=== PATIENT | female | born 1990 | race Caucasian/White ===

== ENCOUNTER → 2019-07-28 | Outpatient (CLI) | payer SELFPAY ==
[2019-07-28 15:44] LABS: Absolute Lymphocyte Count 2.41 X10^3/uL (0.83-4.51); Basophil# 0.03 X10^3/uL; Basophil% 0.3 % (0-1); Eosinophil# 0.12 X10^3/uL; Eosinophils% 1.1 % (0-5); Hematocrit 41.9 % (37-47); Hemoglobin 14.2 g/dL (12.0-15.0); Lymphocyte # 2.41 X10^3/ul (4.0); Lymphocyte % 21.4 % (19-41); Mean Corp Hgb Conc 33.9 g/dL (32-36); Mean Corpuscular Hgb 29.9 pg (27.0-32.0); Mean Corpuscular Volume 88.2 fL (81-99); Mean Platelet Vol. 10.7 fl (6.2-12.0); Monocyte# 0.68 X10^3/uL; NRBC Flagged by Analyzer 0 % (0-5); Neutrophil # 7.98 X10^3/uL (2.7-7.7); Neutrophil % 70.9 % (47-70); Platelet Count 258 K/mm3 (150-450); RBC Distribution Width CV 12.1 % (11.6-14.6); RBC Distribution Width SD 38.9 fl (35.1-43.9); Red Blood Count 4.75 M/mm3 (4.2-5.4); White Blood Count 11.3 K/mm3 (4.4-11.0)
[2019-07-28 16:09] LABS: Thyroid Stim Hormone (TSH) 1.46 uIU/mL (0.358-3.74)
[2019-07-28 16:41] LABS: Color, Urine Yellow (Yellow); Glucose, Dipstick Normal (Normal); Ketone-Dipstick Negative (Negative); Leukocyte Esterase-Dipstick Negative /ul (Negative); Nitrite-Dipstick Negative (Negative); Occult Blood-Urine Negative /ul (Negative); Protein-Dipstick Negative (Negative); Specific Gravity, Urine 1.005 (1.002-1.030); Urine Bilirubin Dipstick Negative (Negative); Urine Clarity Clear (Clear); Urine Urobilinogen Normal (Normal)
[2019-07-31 09:35] LABS: HIV - WCH Non-Reactive (Nonreactive); Hepatitis B Surface Antigen Non-Reactive (Nonreactive); Hepatitis C Antibody Non-Reactive (Nonreactive); Rubella IgG 114.2 IU/mL
[2019-08-03 02:30] LABS: Prenatal RPR NONREACTIVE (NONREACTIVE)
== END | disposition home or self-care (01) ==
LOC: LABSPEC 15:22
PROVIDERS: Referring Provider Obstetrics & Gynecology; Visit Provider Obstetrics & Gynecology
DX: Z34.81 Encounter for supervision of other normal pregnancy, first trimester (principal); Z12.4 Encounter for screening for malignant neoplasm of cervix; Z11.3 Encounter for screening for infections with a predominantly sexual mode of transmission
CPT/HCPCS: 81002; 84443; 85025; 86703; 86762; 86803; 87340

== ENCOUNTER → 2019-09-14 13:26 | Outpatient (CLI) | payer SELFPAY | PROVIDERS: Visit Provider Obstetrics & Gynecology | DX: Z34.82 Encounter for supervision of other normal pregnancy, second trimester (principal) | CPT/HCPCS: 87086; 87088 ==

== ENCOUNTER → 2019-12-27 11:30 | Outpatient (CLI) | payer SELFPAY ==
[2019-12-27 13:56] LABS: Hematocrit 36.9 % (37-47); Hemoglobin 11.7 g/dL (12.0-15.0); Mean Corp Hgb Conc 31.7 g/dL (32-36); Mean Corpuscular Hgb 28.7 pg (27.0-32.0); Mean Corpuscular Volume 90.7 fL (81-99); Mean Platelet Vol. 10.2 fl (6.2-12.0); Platelet Count 250 K/mm3 (150-450); RBC Distribution Width CV 12.7 % (11.6-14.6); RBC Distribution Width SD 42.1 fl (35.1-43.9); Red Blood Count 4.07 M/mm3 (4.2-5.4); White Blood Count 9.1 K/mm3 (4.4-11.0)
[2019-12-27 14:00] LABS: Glucose Challenge Gest 1H 50g 158 mg/dL (70-140)
== END ==
PROVIDERS: Visit Provider Obstetrics & Gynecology
DX: Z34.83 Encounter for supervision of other normal pregnancy, third trimester (principal)
CPT/HCPCS: 36415; 82950; 85027; 86850

== ENCOUNTER → 2020-03-08 10:57 | Outpatient (CLI) | payer SELFPAY ==
[2020-03-08 14:27] LABS: Group B Strep DNA By PCR Negative (Negative); Internal Control PASS; Probe Check PASS; Specimen Processing Control PASS
== END ==
PROVIDERS: Visit Provider Obstetrics & Gynecology
DX: Z36.85 Encounter for antenatal screening for Streptococcus B (principal)
CPT/HCPCS: 87081; 87653

== ENCOUNTER 2020-03-14 11:10 | Inpatient (IN) | payer SELFPAY ==
[2020-03-14] VITALS (44 sets, daily range): BP systolic 105–146; BP diastolic 61–92; PULSE 78–103; TEMP 36.2–37.3; O2SAT 90–100; BMI 24.5
[2020-03-14 12:20] LABS: Absolute Lymphocyte Count 2.43 X10^3/uL (0.83-4.51); Absolute Neutrophil Count 10.2 X10^3/uL (2.0-7.7); Basophil# 0.03 X10^3/uL; Basophil% 0.2 % (0-1); Eosinophil# 0.03 X10^3/uL; Eosinophils% 0.2 % (0-5); Hematocrit 39.4 % (37-47); Hemoglobin 13.5 g/dL (12.0-15.0); Lymphocyte # 2.43 X10^3/ul (4.0); Mean Corp Hgb Conc 34.3 g/dL (32-36); Mean Corpuscular Hgb 29.8 pg (27.0-32.0); Mean Platelet Vol. 11.9 fl (6.2-12.0); Monocyte# 0.69 X10^3/uL; Monocyte% 5.1 % (0-10); NRBC Flagged by Analyzer 0 % (0-5); Neutrophil # 10.22 X10^3/uL (2.7-7.7); Neutrophil % 75.6 % (47-70); Platelet Count 239 K/mm3 (150-450); RBC Distribution Width CV 13.6 % (11.6-14.6); RBC Distribution Width SD 42.3 fl (35.1-43.9); Red Blood Count 4.53 M/mm3 (4.2-5.4); White Blood Count 13.5 K/mm3 (4.4-11.0)
[2020-03-14] MEDS: Lactated Ringers 1,000 ML 50 ML IV (12:55)
[2020-03-14] MEDS: Lactated Ringers 500 ML 999 ML IV (12:55)
--- NOTE | 2020-03-14 13:03 | PCM.HP.OB ---
- Problem List (1) 40 weeks gestation of Status: Acute History Date of Admission: 03/14/20 Final MERLE: 03/08/20 Final MERLE Source: US <20 weeks Gestational age: 40 Weeks and 6 Days History of this : This is a 29 year-old, G [3], P [0020], at 40 6/7 weeks gestational age presents with painful contractions. Medical History: Medical History (Last Updated 03/14/20 @ 13:[address] Celina Sifuentes MD) Gestational diabetes O24.419 Allergies No Known Allergies Allergy (Verified 03/14/20 11:47) Smoking Status: Never smoker Alcohol: None Number of Fetus(es): 1 NST - FHR Rate Baby A Baseline: 120 Variability:: Moderate Accelerations:: 15 x 15 Decelerations:: None NST Reactive:: Yes FHR Category:: Category I Uterine Activity:: 3/10 min History Labs: [facility] [place] ANTEPARTUM RECORD - HISTORY AND PHYSICAL (03/14/2020) Name: YU SHELTON Physician: DONALDO 's Physician: UNDECIDED ...................................................................... : 1990 Age: 29 Address: [address] [place] [id number] Phone: ([phone] ([phone] Insurance Carrier: Emergency Contact: AMALIA WHELAN [phone] ...................................................................... Final MERLE: 03/08/20 By Ultrasound: 12 PARITY: (G-Total Pregnancies P-Fullterm,Premature,Induced AB,Spont AB, Ectopics, Multiple,Living) MERLE CONFIRMATION: By LMP: 03/20/19 Initial Exam: 03/16/20 By First Ultrasound Exam: 03/08/20 Final MERLE: 03/08/20 BLOOD TYPE: AFP: 1 HR PG: GBS: Original Ordering Provider: Celina CHAVARRIA Culture Group B Beta Streptococcus is not isolated. Rublla titer (>10 immune)-- Hepatatis B danny AG-- CULTURES:-- OB PROBLEM LIST: Some anxiety, no treatment. EPDS on 07/28/2019 = 6. 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 Office classes encouraged. 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 Illicit Drug Use - None Sexual Activity - Residence - lives with Place of - [place], [place] Hours Worked - 24 Spouse-Sig Other Name - Salty Shelton Spouse-Sig Other Occupation - [employer] Spouse-Sig Other Phone No - [phone] PRIOR DELIVERY HISTORY DEL DATE GEST LAB WT LB WT OZ TYPE ANES LABOR TX 01 Jun 08 4 0 0 0 Sab None 15 Sep 19 4 0 0 0 Sab None No ANTEPARTUM FLOW CHART VISIT GE RTC FU F F MD U U DATE WK MD WKS HT PN HR M SS BP ED WT MD GL D EF ST __ ____ ___ __ __ ___ __ __ __ ___ __ __ __ ___ __ 23 Feb JMW 1 38 V + + 138/84 0 130 ne ne S Feb SHM 1 37 V + + 120/88 0 128 - - 1 50 -3 Jan SHM 1 33 V + + 130/82 0 127 tr - Jan SHM 2 32 V + + 120/70 0 126 - - 21 Jan 18 SHM 2 29 V + + 112/62 0 121 tr ne 07 Jan 16 SHM 2 26 ? + + 122/60 0 119 - 3+ 09 Dec 13 SHM 4 23 + + 112/58 0 116 - - 05 Nov 07 SHM 4 21 + O 110/64 0 111 tr - 01 Oct 02 SHM 5 + O 106/80 0 107 ne ne Sep 01 SHM 4 + O 100/60 0 106 ne ne Aug 29 SHM 5 on O 98/62 0 106 - - ANTEPARTUM NOTE(S): Mar 13 2020: ck BPP and start NSTs; induce next week Mar 08 2020: GBS and LARC Feb 12 2020: copyof blood sugars for review Feb 02 2020: feeling well. AM Jan 10 2020: Dec 26 2020: Nov 28 2020: see note Oct 25 2019: comp u/s today with anterior plancenta noted Sep 19 2020: Sep 13 2020: see note Aug 25 2019: COMPREHENSIVE ANTEPARTUM NOTE(S): Mar 14 2020: Call Msg from Yu's reporting ctx's since 4 AM, now q 5 min lasting a min and have been this way for the past hour. Having some spotting, denies leaking fluid and good FM. They are on their way to the hosp. Dr Rupert Sifuentes notified. Mar 13 2020: Yu is here for PNV. here. States that she is slightly uncomfortable. Having some cramping in lower abd. States BH maybe once or twice a day. No edema. Good FM. Having mucousy vag discharge. No other complaints or concerns. LSS Mar 13 2020: Yu and here for visit and wanting cervix ck and plan for delivery as post dates. initially declines NST at on Wednesday. Advised this is necessary and would be against medical advice. Yu agreeable to NST. They refuse to schedule induction this week for early next week. will not hold a spot for them unless they sign paperwork and they are advised and plan to see SHM on Wednesday to discuss. BPP completed today after NST which is reassuring and BPP is 8/8. LMT Mar 11 2020: H taken to OB. tkg Mar 11 2020: Entry for 03/08/20: Due date changed due to computer error, 40 w today. Declines membrane stripping. Glucose remains well controlled. Discussed elective IOL vs. expectant management. Pt declines IOL. Will plan for IOL at 41+ wga if remains undelivered. Mar 08 2020: Yu is here for a PNV. Good FM. No edema preset. No concerns expressed at this time. Will do GBS and LARC today. GBS consent signed. LARC reviewed and declined. Would like to do a cervix check today. Believes she lost mucous plug Wednesday and has had inconsistent cramping since. MK Feb 13 2020: Glucose log reviewed, elevated postprandial and single elevated fasting last week. 86% at target. Pt indicated she previously had been more sedentary after those meals. Will move more postprandially. Discussed development late term. FM and labor precautions. Feb 02 2020: Glucose levels at target 100% after dietary changes. Pt declined meet with dietitian, will continue self managment, doing well. Fasting and 2 postprandial FS daily ok. Reviewed plan for expectant management with regards to labor if remains well controlled. Discussed glucose surveillance in labor and indications. GBS discussed for next visit. Jan 10 2020: Yu is here for PNV. Good FM. No edema noted. Urine dipped tr and neg. States that she is feeling good. No concerns for this visit. LSS Jan 10 2020: Reviewed elevated 1h GTT, recommend 3h GTT. Pt inquires about alternatives, FS glucose testing as alternative reviewed. Rx glucometer, test strips and lancets given. Reviewed how to take fasting and 1h postprandial blood sugars. Discussed Peds/Family Doc selection for . Not planning on cord blood banking. Dec 27 2019: 1 Hr Glucose, CBC, Antibody Screen drawn this morning. Rhogam given after blood drawn. 3+ glucose in urine. States she had whole grain toast w/avocado and an egg. Water to drink. Good FM. Voicing no concerns. kbm Dec 27 2019: PTL, ROM, FM precautions. Discussed PPBC, family spacing, considering NFP. Information given. Nov 29 2019: Yu is here for visit. Several concerns today regarding Glucola and Rhogam. She is given dye and BVO free glucola. Rhogam Thimerosal free. Encouraged her to review the CDC education on this. LMT Nov 29 2019: Yu is here with her mother today. Has questions about Rhogam indications. Discussed indications, source. She will try to verify 's blood type in interim. Pt understands testing for blood type will determine if additional dose recommended. PTL, FM precautions discussed. Recommend Flu shot. Pt considering against this, recommend zinc 40mg daily and Vitamin D3 2000 IU daily if declines. Labor analgesia reviewed - desires unmedicated labor and is considering options, open to epidural as indicated. Oct 25 2019: Anatomy scan - EFW 73rd%, ANTERIOR placenta, normal anatomy. Discussed FM further. Pt inquired about placental encapsulation, reviewed limited scientific evidence supporting the practice. Advised to avoid if any signs of infection at labor or delivery. Discussed epidural and spinal indications. Gender reveal planned for tonight. Sep 20 2019: UCx neg reviewed. Discussed movement, round ligament pain. Pt plans childbirth and class. Denies anxiety, depressive sx. Sep 14 2019: Yu is here for evaluation of leaking fluid yesterday. She felt like her panties were damp several times yesterday. [place] like she had to urinate more frequently. Today sx are pretty much resolved. Urine dip shows ? sm leuks, ph of 6, sp gr 1.005. Urine sent for culture. LMT Sep 14 2019: FHR 160 bpm on US, grossly normal fluid. SSE - neg pool, nitrazine. Wet prep - neg clue/trich/yeast. Pt reassured. Dx. Leukorrhea Aug 31 2019: TELEHEALTH NOB VISIT. Yu is a 29 year old A2 (early SAB's), with an MERLE of 03/16/2020, current GA is 11 w 5 d. She reports that she is feeling well with no N/V. Yu resides with her , Salty, and she states that they are both very happy and nervous about the given her SAB history. Past history updated. Office practice patterns reviewed, and her labs were collected at her prior visit. Emergencies/danger signs to reports, contacting the office during/after hours, reporting a suspected UTI, round ligament pain, and common OTC medications approved/not approved for use during reviewed. She states that she has a history of UTI's, and that she will definitely call the office. Delivery at [facility] is planned, with an epidural, and she will breastfeed. Office childbirth and classes discussed and encouraged, Yu takes an OTC vitamin that contains DHA and states that she tolerates this well. She is a life long non-smoker, and denies use of drugs or ETOH. Genetic Screening form completed on 07/28/2019, notable for her being born without one of his femurs. Initially Yu had been undecided about AFP and CF testing, she states that she and her have decided to decline both. She states that she has a history of some anxiety, but has not felt that she needed to seek treatment for same. EPDS on 07/28/2019 = 6. Water/dietary/caloric needs for reviewed, including recommended weight gain, limiting empty calories, limiting to caffeine to one cup a day, and food safety for reviewed. Encouraged to take walks 5 x/week for 30 mins each time. Lifting restrictions for reviewed. Yu states that she understands all information provided during 45 minute telephone NOB visit, and that she has no questions following same. AW Aug 27 2019: Entry for 08/25/19: Reviewed with Yu and [id number] related precautions. Their concerns about risk for loss discussed, reviewed dropping risk as advances particularly after 12 weeks. Discussed aneuploidy screening options including cfDNA vs. Quad screen. Reviewed benefits, limitations including associated risk for false positives and negatives. Also discussed amniocentesis, [facility]. Plan for Quad screen, msAFP at next appointment. Aug 25 2019: Yu is here w/her , Salty, for PNV, US. All going well. She is feeling well. No nausea or vomiting. Both are anxious d/t 2 previous SAB's. Concerned w/Hx UTI's -- apprx 3/ year and has Rx for Macrobid from her PCP to take. Advised to call with any Sx cramping or UTI Sx. Reviewed bedroom / bathroom hygiene and to always void after IC/ good handwashing. Reviewed importance of hydration. They would like to discuss wearing masks @ work. Both have been following COVID precautions at [facility] respective jobs. [facility] Jul 28 2019: Yu is here for missed menses appt. She relates to me no real menses since early SAB in May. Reports early SAB in May and then the one in May. She is concerned about another SAB as she does not really feel . Only sx is feels a little more hungry. She is taking PNV. Was taking hair vitamin and iodine supplement but stopped these. She is advised that she probably does not need these. She could add Vit D and Probiotic if desires. Most seem deficient of Vit D in [place] and Probiotic may help with GI system. Reviewed normal sx like constipation, heartburn, increased gas. Educational materials are provided and medications for minor discomforts are reviewed. Encouraged healthy diet, increased po fluids, and 30 minutes of exercise 5x/wk. Pap and cultures are due today. Further discussion regarding dating of this and prior hx of the early SAB's with Dr OVALLES. LMT REVIEW OF SYSTEMS: GENERAL - Denies fever, or chills SKIN - Denies rash, new skin lesions, or change in moles EYES - Denies blurred vision, or change in visual acuity EARS - Denies ear pain, or difficulty hearing NOSE - Denies nasal congestion, discharge, or bleeding MOUTH - Denies sore throat, or difficulty swallowing NECK - Denies pain or swelling RESPIRATORY - Denies shortness of breath, cough, wheezing CARDIOVASCULAR - Denies palpitations, chest pain, orthopnea, PND, peripheral edema, syncope or claudication GASTROINTESTINAL - Denies nausea, vomiting, diarrhea, constipation, Denies abdominal pain, melena and or bright red blood GENITOURINARY - Denies dysuria, frequency of urination, urgency, or hesitancy MUSCULOSKELETAL - Denies joint or muscle pain, or back pain NEUROLOGICAL - Denies localized numbness, weakness, or tingling PSYCHIATRIC - Denies depression, anxiety, substance abuse or suicide attempts ENDOCRINE - Denies heat or cold intolerance, weight loss or gain, increasing thirst HEMATO-IMMUNOLOGIC - Denies easy bruising, bleeding, oral ulcerations or recurrent infections GENETICS SCREENING: Age 35+ years: No Thalassemia: No Neural Tube Defect: No Down Syndrome: No ROBERTO-SACHS: No Sickle Cell Disease: No Hemophilia: No Musc. Dystrophy: No Cystic Fibrosis: No-declines screening [place] Chorea: No Mental Retardation: No Fragile X: No Other genetic: No Other defects: No SABs/still births: No Drugs since LMP: No Comments: born without femur INFECTION HISTORY: High risk AIDS: No High risk Hepatitis: No Exposed to TB: No Exposed to Herpes: No Rash/viral illness since LMP: No History of STD: No MENSTRUAL HISTORY: *Menses Amount/Duration: 5 daysMenses Regularity: RegularFrequency: monthlyMenarche (Age Onset): 14* PAST SUMMARY: PARITY: 1. Total Pregnancies............ 3 2. Full Term Pregnancies........ 0 3. Premature.................... 0 4. Abortions - Induced.......... 0 5. Abortions - Spontaneous...... 2 6. Ectopics..................... 0 7. Multiple Births.............. 0 8. Living Children.............. 0 PAST #1: Date of :.................. 12/04/18 Gestation Weeks:................ 4 Length of labor(hours):......... 0 Sex:............................ Weight-lbs:............... 0 Weight-oz:................ 0 Type of Delivery:............... Sab Type of Anesthesia:............. None Place of Delivery:.............. none Treatment of Labor?:.... No Comment: APPROX DATE PAST #2: Date of :.................. 05/21/19 Gestation Weeks:................ 4 Length of labor(hours):......... 0 Sex:............................ Weight-lbs:............... 0 Weight-oz:................ 0 Type of Delivery:............... Sab Type of Anesthesia:............. None Place of Delivery:.............. none Treatment of Labor?:.... Comment: DATE APPROX Expected Delivery Method: Spontaneous Vaginal Number of Visits: 11 Physical Exam Vitals: Vital Signs Temp Pulse BP Pulse Ox 99.2 F H 82 118/75 98 03/14/20 12:21 03/14/20 12:21 03/14/20 12:21 03/14/20 12:21 General: Alert, Oriented x3, Cooperative, No apparent distress HEENT: Atraumatic, Normocephalic Cardiovascular: Regular rate, Regular Rhythm, Normal S1, Normal S2 Lungs: Normal air movement Abdomen: Soft, Non Tender, Non-Distended Neurological: Neuro grossly intact Estimated gestational size: Appropriate for gestational size Presentation: Cephalic Cervix Dilation (cm): 3.5 - by RN exam Christina Castillo Assessment/Plan All Active Problems 40 weeks gestation of (Acute) This is a 29 year-old, G [3], P [0020], at 40 6/7 weeks gestational age in labor, Cat I FHR
--- NOTE | 2020-03-14 13:23 | PCM.PN.BLA ---
Progress Note LABOR PROGRESS NOTE Yu reports persistent back pain. AVSS GEN - NAD, breathing through contractions FHR 120, moderate variability, + accelerations, no decelerations TOCO 3/10 min SVE 6/80/0 station, blood show present A/P: 29yo @ 40 6/7 wga, Cat I FHR in active labor -Epidural per patient request -Blood sugars well controlled STROKE Vital Signs/Narrative: Vital Signs Temp Pulse BP Pulse Ox 03/14/20 12:21 99.2 F H 82 118/75 98 03/14/20 11:13 97.9 F 03/14/20 11:07 93 139/83 H
[2020-03-14 13:36] LABS: Bedside Glucose 98 mg/dL (70-110)
[2020-03-14] MEDS: fentaNYL-bupivacaine (epidural) 100 ML BAG EPIDURAL (13:45)
[2020-03-14 14:21] LABS: Bedside Glucose 104 mg/dL (70-110)
[2020-03-14 16:45] LABS: Bedside Glucose 106 mg/dL (70-110)
[2020-03-14 16:45] LABS: Bedside Glucose 173 mg/dL (70-110)
[2020-03-14] MEDS: 0.9% Saline Lock 10 ML Syringe IV (17:41)
[2020-03-14] MEDS: Ondansetron 4 MG/2 ML Vial IV (17:42)
[2020-03-14 17:46] LABS: Bedside Glucose 91 mg/dL (70-110)
[2020-03-14] MEDS: Lactated Ringers 1,000 ML 200 ML IV (19:34)
[2020-03-14] MEDS: Oxytocin 30 units/NS 500 ml 30 UNITS/500 ML IV.SOLN 334 UNITS IV (20:18)
[2020-03-14 21:40] LABS: Bedside Glucose 108 mg/dL (70-110)
[2020-03-14 21:40] LABS: Bedside Glucose 100 mg/dL (70-110)
[2020-03-14] MEDS: Ibuprofen 600 MG Tablet PO (21:59)
--- NOTE | 2020-03-14 23:55 | PCM.OPRPT ---
Problem List (1) 40 weeks gestation of Status: Acute Vaginal Delivery Maternal Presentation: Active Labor [id number] Amniotic Membrane Rupture Type: Spontaneous Rupture of Membrane time: 1322 on 03/14/20 Amniotic Fluid Description: Clear Final MERLE: 03/08/20 Final MERLE Source: US <20 weeks Gestational age: 40 Weeks and 6 Days Date of Procedure: 03/14/20 Pre-Operative Diagnosis: 40 6/7wga, GDMA1 Post-Operative Diagnosis: 40 6/7wga, GDMA1 Surgery/ Procedure Performed: Spontaneous Vaginal Delivery Anesthesiologist: Luis Christopher Type of Anesthesia: Epidural Description of Procedure: Patient was FD, pushed to deliver a vigorous male . placed on maternal abdomen and further attended by nursery personnel. Cord doubly clamped and cut. Placenta delivered spontaneously and appeared intact on inspection. First degree perineal laceration repaired with 3-0 Vicryl Rapide. Presentation: Vertex Placental Delivery Description: Spontaneous Cord Vessel Description: 3 Vessels Nuchal Cord Compression: Without compression Cord Entanglement: None Drain: Duncan to straight drain Infant A gender: Male (1 minute): 9 (5 minute): 9 Episiotomy Description: None Laceration: Perineal Extension/lac, 1st degree Medications given after delivery: IV Pitocin Complications: None
--- NOTE | 2020-03-15 01:30 | NURSING ---
Report given to Berta GUILLERMO, taking over pt and care at this time.
[2020-03-15] MEDS: Acetaminophen 500 MG Tablet PO ×3 (02:11→18:19)
[2020-03-15 02:24] VITALS: BP 110/67; PULSE 74; RESP 16; TEMP 37.3
[2020-03-15 05:11] VITALS: BP 111/76; PULSE 74; RESP 16; TEMP 37.1
[2020-03-15 05:21] LABS: Bedside Glucose 86 mg/dL (70-110)
--- NOTE | 2020-03-15 07:07 | PCM.PN.OB ---
Patient Problems: Active and Suspected Problems (Last Updated 03/14/20 @ 13:[address] Celina Sifuentes MD) 40 weeks gestation of (Acute) Subjective: No issues overnight. She is sore, but pain alleviated with medication. Denies heavy lochia. Voiding and ambulating without difficulty. Nursing is going well, but she notes pain with latching. - Physical Exam Vitals/I&O's: Vital Signs Temp Pulse Resp BP Pulse Ox 98.7 F 74 16 111/76 92 03/15/20 05:11 03/15/20 05:11 03/15/20 05:11 03/15/20 05:11 03/14/20 22:45 Oxygen Delivery Method Room Air Weight: 58.8 kg Body Mass Index (BMI) 24.5 Intake and Output for Last 24 Hours 03/13/20 03/14/20 03/15/20 23:59 23:59 23:59 Intake Total 2530.00 / 2530.00 Output Total 2250 / 2250 1400 / 1400 Balance 280.00 / 280.00 -1400 / -1400 General: Alert, Oriented x3, Cooperative, No apparent distress HEENT: Atraumatic, Normocephalic Lungs: Clear to auscultation, Normal air movement Cardiovascular: Regular rate, Regular Rhythm, Normal S1, Normal S2 Abdomen: Soft, Non Tender, Non-Distended, - - Fundus firm and nontender, lochia scant Extremities: No edema, No Calf Tenderness Neurological: Neuro grossly intact Psych/Mental Status: Normal Affect, Appropriate, Alert and oriented to time, place, person, mood and affect Laboratory Results 03/14/20 11:55: WBC 13.5 H, RBC 4.53, Hgb 13.5, Hct 39.4, MCV 87.0, MCH 29.8, MCHC 34.3, RDW Std Deviation 42.3, RDW Coeff of Jj 13.6, Plt Count 239, MPV 11.9, Immature Gran % (Auto) 0.900, Neut % (Auto) 75.6 H, Lymph % (Auto) 18.0 L, Butler % (Auto) 5.1, Eos % (Auto) 0.2, Baso % (Auto) 0.2, Absolute Neuts (auto) 10.2 H, Absolute Lymphs (auto) 2.43, Nucleated RBC % 0 03/14/20 11:55: Blood Type A NEGATIVE, Antibody Screen TNP 03/14/20 11:55: Antibody Screen NEGATIVE 03/14/20 13:14: POC Glucose 98 03/14/20 14:13: POC Glucose 104 03/14/20 15:23: POC Glucose 173 H 03/14/20 16:25: POC Glucose 106 03/14/20 17:42: POC Glucose 91 03/14/20 19:50: POC Glucose 100 03/14/20 21:10: POC Glucose 108 03/15/20 04:58: POC Glucose 86 Current Medications Acetaminophen (Acetaminophen 500 Mg Tablet) 500 - 1,000 mg PO Q6H PRN PRN PRN Reason: Pain Score 1-3 Last Admin: 03/15/20 02:11 Dose: 1,000 mg Documented by: Bisacodyl (Bisacodyl 10 Mg Suppository) 10 mg RECTAL UD PRN PRN Reason: If no BM Dextrose (Dextrose 50%-Water 25 Gm/50 Ml Disp.Syrin) 0 gm IV X1 PRN; Protocol PRN Reason: Hypoglycemia Dibucaine (Dibucaine 30 Gm Tube) 1 applic TOPICAL TID PRN PRN; Protocol PRN Reason: Discomfort Glucagon (Glucagon 1 Mg/Ml Syringe) 1 mg IM .X1 PRN PRN Reason: Hypoglycemia Hydrocortisone (Hydrocortisone 2.5% Crm) 1 applic TOPICAL TID PRN PRN; Protocol PRN Reason: Discomfort Ibuprofen (Ibuprofen 600 Mg Tablet) 600 mg PO Q6H PRN PRN PRN Reason: Pain Score 1-3 Last Admin: 03/14/20 21:59 Dose: 600 mg Documented by: Methylergonovine Maleate (Methylergonovine 0.2 Mg/Ml Ampul) 0.2 mg IM X1 PRN PRN Reason: Excess bleeding/uterine atony Ondansetron HCl (Ondansetron 4 Mg/2 Ml Vial) 4 mg IV Q4H PRN PRN PRN Reason: NAUSEA Last Admin: 03/14/20 17:42 Dose: 4 mg Documented by: Senna/Docusate Sodium (Senna/Docusate Sodium 1 Tablet) 1 - 2 tablet PO DAILY PRN PRN PRN Reason: Constipation Simethicone (Simethicone 80 Mg Tablet) 80 mg PO PCHS PRN PRN Reason: Indigestion/Stomach pain Sodium Chloride (0.9% Saline Lock 10 Ml Syringe) 5 - 15 ml IV UD PRN PRN Reason: SALINE FLUSH Medical Necessity - Tobacco Use Smoking Status: Never smoker Assessment/Plan All Active Problems (Last Updated 03/14/20 @ 13:[address] Celina Sifuentes MD) 40 weeks gestation of (Acute) This is a 29 year-old, G [3], P [1021], PPD#1 s/p doing well. -A neg, A neg - No Rhogam indicated -, support -Routine care
[2020-03-15] MEDS: Ibuprofen 600 MG Tablet PO ×3 (08:18→21:49)
[2020-03-15 08:20] VITALS: BP 115/74; PULSE 72; RESP 16; TEMP 37.2; O2SAT 95
[2020-03-15 11:57] VITALS: BP 120/78; PULSE 83; RESP 16; TEMP 36.8; O2SAT 96
[2020-03-15 14:00] VITALS: BP 112/72; PULSE 83; RESP 16; TEMP 36.9; O2SAT 96
[2020-03-15 20:49] VITALS: BP 109/69; PULSE 79; RESP 16; TEMP 36.7
[2020-03-15] MEDS: Senna/Docusate Sodium 1 Tablet PO (21:49)
[2020-03-16 01:52] VITALS: BP 109/69; PULSE 70; RESP 14; TEMP 36.7
[2020-03-16] MEDS: Ibuprofen 600 MG Tablet PO (08:44)
[2020-03-16] MEDS: Senna/Docusate Sodium 1 Tablet PO (08:45)
[2020-03-16 08:49] VITALS: BP 109/81; PULSE 89; RESP 16; TEMP 37.1
--- NOTE | 2020-03-16 09:02 | DCINST_ITS ---
Discharge Diet: No Restrictions Discharge Activity: Return to Normal Activity, May Shower, May Take a Tub Bath May resume sexual activity in: 6 weeks Lifting Restrictions: 20 lb Call your doctor if you observe: Fever of 101 or Higher, Inability to urinate, Inability to have a bowel movement, Shortness of breath, Chest pain, Calf discomfort, Uncontrolled pain Additional Instructions: If you experience any of the following, contact your healthcare provider. * Bleeding that soaks a pad every hour for 2 hours * Fever 100.4 or higher * Unrelieved incision or abdominal pain * Swelling, redness, discharge or bleeding from your incision or episiotomy site * Your incision begins to separate * Problems urinating (including inability to urinate or burning while urinating). * Visual changes * Severe headache * Flu-like symptoms * Pain or redness in one of both of your breasts * Pain, warmth, tenderness or swelling in your legs, especially the calf area * Frequent nausea and vomiting * Symptoms of depression or anxiety If you experience any of the following, call 911 or go to the nearest Emergency Room. * Chest pain * Problems breathing * Seizure activity * Partial or complete paralysis of a body part, slurred speech, weakness or drooping of the face, or a sudden inability to walk or hold your balance Allergies/Adverse Reactions: Allergies No Known Allergies Allergy (Verified 03/14/20 11:47) Please Follow Up With: Celina Oro MD When: 6 weeks Test Results: Test results from this visit will be discussed in further detail at your follow- up appointment, if applicable.
--- NOTE | 2020-03-16 09:02 | PCM.DCVAG ---
Discharge Diet: No Restrictions Discharge Activity: Return to Normal Activity, May Shower, May Take a Tub Bath May resume sexual activity in: 6 weeks Lifting Restrictions: 20 lb Call your doctor if you observe: Fever of 101 or Higher, Inability to urinate, Inability to have a bowel movement, Shortness of breath, Chest pain, Calf discomfort, Uncontrolled pain Additional Instructions: If you experience any of the following, contact your healthcare provider. Bleeding that soaks a pad every hour for 2 hours Fever 100.4 or higher Unrelieved incision or abdominal pain Swelling, redness, discharge or bleeding from your incision or episiotomy site Your incision begins to separate Problems urinating (including inability to urinate or burning while urinating). Visual changes Severe headache Flu-like symptoms Pain or redness in one of both of your breasts Pain, warmth, tenderness or swelling in your legs, especially the calf area Frequent nausea and vomiting Symptoms of depression or anxiety If you experience any of the following, call 911 or go to the nearest Emergency Room. Chest pain Problems breathing Seizure activity Partial or complete paralysis of a body part, slurred speech, weakness or drooping of the face, or a sudden inability to walk or hold your balance Allergies/Adverse Reactions: Allergies No Known Allergies Allergy (Verified 03/14/20 11:47) Please Follow Up With: Celina Oro MD When: 6 weeks Test Results: Test results from this visit will be discussed in further detail at your follow-up appointment, if applicable.
--- NOTE | 2020-03-16 09:23 | PCM.PN.OB ---
Patient Problems: Active and Suspected Problems (Last Updated 03/14/20 @ 13:[address] Celina Sifuentes MD) 40 weeks gestation of (Acute) Subjective: No issues overnight. She reports soreness of perineum. Denies heavy lochia. Continues nursing. Objective: AVSS - Physical Exam Vitals/I&O's: Vital Signs Temp Pulse Resp BP Pulse Ox 98.7 F 89 16 109/81 H 96 03/16/20 08:49 03/16/20 08:49 03/16/20 08:49 03/16/20 08:49 03/15/20 14:00 Oxygen Delivery Method Room Air Weight: 58.8 kg Body Mass Index (BMI) 24.5 Intake and Output for Last 24 Hours 03/14/20 03/15/20 03/16/20 23:59 23:59 23:59 Intake Total 2530.00 / 2530.00 Output Total 2250 / 2250 1400 / 1400 Balance 280.00 / 280.00 -1400 / -1400 General: Alert, Oriented x3, Cooperative, No apparent distress HEENT: Atraumatic, Normocephalic Lungs: Clear to auscultation, Normal air movement Cardiovascular: Regular rate, Regular Rhythm, Normal S1, Normal S2 Abdomen: Soft, Non Tender, Non-Distended, - - Fundus firm and nontender Extremities: No edema, No Calf Tenderness Neurological: Neuro grossly intact Psych/Mental Status: Normal Affect, Appropriate, Alert and oriented to time, place, person, mood and affect Current Medications Acetaminophen (Acetaminophen 500 Mg Tablet) 500 - 1,000 mg PO Q6H PRN PRN PRN Reason: Pain Score 1-3 Last Admin: 03/15/20 18:19 Dose: 1,000 mg Documented by: Bisacodyl (Bisacodyl 10 Mg Suppository) 10 mg RECTAL UD PRN PRN Reason: If no BM Dextrose (Dextrose 50%-Water 25 Gm/50 Ml Disp.Syrin) 0 gm IV X1 PRN; Protocol PRN Reason: Hypoglycemia Dibucaine (Dibucaine 30 Gm Tube) 1 applic TOPICAL TID PRN PRN; Protocol PRN Reason: Discomfort Glucagon (Glucagon 1 Mg/Ml Syringe) 1 mg IM .X1 PRN PRN Reason: Hypoglycemia Hydrocortisone (Hydrocortisone 2.5% Crm) 1 applic TOPICAL TID PRN PRN; Protocol PRN Reason: Discomfort Ibuprofen (Ibuprofen 600 Mg Tablet) 600 mg PO Q6H PRN PRN PRN Reason: Pain Score 1-3 Last Admin: 03/16/20 08:44 Dose: 600 mg Documented by: Methylergonovine Maleate (Methylergonovine 0.2 Mg/Ml Ampul) 0.2 mg IM X1 PRN PRN Reason: Excess bleeding/uterine atony Ondansetron HCl (Ondansetron 4 Mg/2 Ml Vial) 4 mg IV Q4H PRN PRN PRN Reason: NAUSEA Last Admin: 03/14/20 17:42 Dose: 4 mg Documented by: Senna/Docusate Sodium (Senna/Docusate Sodium 1 Tablet) 1 - 2 tablet PO DAILY PRN PRN PRN Reason: Constipation Last Admin: 03/16/20 08:45 Dose: 1 tablet Documented by: Simethicone (Simethicone 80 Mg Tablet) 80 mg PO PCHS PRN PRN Reason: Indigestion/Stomach pain Sodium Chloride (0.9% Saline Lock 10 Ml Syringe) 5 - 15 ml IV UD PRN PRN Reason: SALINE FLUSH Medical Necessity - Tobacco Use Smoking Status: Never smoker Assessment/Plan All Active Problems (Last Updated 03/14/20 @ 13:[address] Celina Sifuentes MD) 40 weeks gestation of (Acute) This is a 29 year-old, G [3], P [1021], PPD#2 s/p doing well. -A neg, infant A neg - No Rhogam indicated -, support -Routine care -d/c home today
--- NOTE | 2020-03-16 09:24 | DCINST_ITS ---
Discharge Diet: No Restrictions Discharge Activity: Return to Normal Activity, May Shower, May Take a Tub Bath May resume sexual activity in: 6 weeks Call your doctor if you observe: Fever of 101 or Higher, Inability to urinate, Inability to have a bowel movement, Shortness of breath, Chest pain, Calf discomfort, Uncontrolled pain Additional Instructions: If you experience any of the following, contact your healthcare provider. * Bleeding that soaks a pad every hour for 2 hours * Fever 100.4 or higher * Unrelieved incision or abdominal pain * Swelling, redness, discharge or bleeding from your incision or episiotomy site * Your incision begins to separate * Problems urinating (including inability to urinate or burning while urinating). * Visual changes * Severe headache * Flu-like symptoms * Pain or redness in one of both of your breasts * Pain, warmth, tenderness or swelling in your legs, especially the calf area * Frequent nausea and vomiting * Symptoms of depression or anxiety If you experience any of the following, call 911 or go to the nearest Emergency Room. * Chest pain * Problems breathing * Seizure activity * Partial or complete paralysis of a body part, slurred speech, weakness or drooping of the face, or a sudden inability to walk or hold your balance Allergies/Adverse Reactions: Allergies No Known Allergies Allergy (Verified 03/14/20 11:47) Medications to take at Discharge Ibuprofen [Motrin] 600 mg PO Q8H PRN PRN #30 tab 03/16/20 The following prescriptions were given: Ibuprofen [Motrin] 600 mg PO Q8H PRN PRN #30 tab PRN Reason: Pain Score 1-10 Transmission Status: Pending to [facility] Please Follow Up With: Celina Oro MD When: 6 weeks Test Results: Test results from this visit will be discussed in further detail at your follow- up appointment, if applicable.
--- NOTE | 2020-03-16 09:24 | PCM.DCVAG ---
Discharge Diet: No Restrictions Discharge Activity: Return to Normal Activity, May Shower, May Take a Tub Bath May resume sexual activity in: 6 weeks Call your doctor if you observe: Fever of 101 or Higher, Inability to urinate, Inability to have a bowel movement, Shortness of breath, Chest pain, Calf discomfort, Uncontrolled pain Additional Instructions: If you experience any of the following, contact your healthcare provider. Bleeding that soaks a pad every hour for 2 hours Fever 100.4 or higher Unrelieved incision or abdominal pain Swelling, redness, discharge or bleeding from your incision or episiotomy site Your incision begins to separate Problems urinating (including inability to urinate or burning while urinating). Visual changes Severe headache Flu-like symptoms Pain or redness in one of both of your breasts Pain, warmth, tenderness or swelling in your legs, especially the calf area Frequent nausea and vomiting Symptoms of depression or anxiety If you experience any of the following, call 911 or go to the nearest Emergency Room. Chest pain Problems breathing Seizure activity Partial or complete paralysis of a body part, slurred speech, weakness or drooping of the face, or a sudden inability to walk or hold your balance Allergies/Adverse Reactions: Allergies No Known Allergies Allergy (Verified 03/14/20 11:47) Medications to take at Discharge Ibuprofen [Motrin] 600 mg PO Q8H PRN PRN #30 tab 03/16/20 The following prescriptions were given: Ibuprofen [Motrin] 600 mg PO Q8H PRN PRN #30 tab PRN Reason: Pain Score 1-10 Transmission Status: Pending to [facility] Please Follow Up With: Celina Oro MD When: 6 weeks Test Results: Test results from this visit will be discussed in further detail at your follow-up appointment, if applicable.
== END 2020-03-16 11:55 | disposition home or self-care (01) | DRG 807 ==
LOC: WPOUT 11:14 → WP 11:14
PROVIDERS: Admitting Provider Obstetrics & Gynecology; Referring Provider Obstetrics & Gynecology; Visit Provider Obstetrics & Gynecology
DX: O24.420 Gestational diabetes mellitus in childbirth, diet controlled (principal); Z37.0 Single live birth; Z3A.40 40 weeks gestation of pregnancy; O70.0 First degree perineal laceration during delivery
CPT/HCPCS: 59025; 59050; 82962; 85025; 86850; 86900; 86901; 99218; J7120; A4216; G0378; J2405

== ENCOUNTER → 2021-12-19 | Outpatient (CLI) | payer SELFPAY ==
[2021-12-19 11:36] LABS: Absolute Lymphocyte Count 2.52 X10^3/uL (0.83-4.51); Absolute Neutrophil Count 5.8 X10^3/uL (2.0-7.7); Basophil# 0.04 X10^3/uL; Basophil% 0.4 % (0-1); Eosinophil# 0.54 X10^3/uL; Eosinophils% 5.7 % (0-5); Hematocrit 39.4 % (37-47); Hemoglobin 13.5 g/dL (12.0-15.0); Lymphocyte # 2.52 X10^3/ul (0.83-4.51); Lymphocyte % 26.7 % (19-41); Mean Corp Hgb Conc 34.3 g/dL (32-36); Mean Corpuscular Hgb 29.9 pg (27.0-32.0); Mean Corpuscular Volume 87.4 fL (81-99); Mean Platelet Vol. 9.7 fl (6.2-12.0); Monocyte% 5.3 % (0-10); NRBC Flagged by Analyzer 0 % (0-5); Neutrophil % 61.6 % (47-70); Platelet Count 276 K/mm3 (150-450); RBC Distribution Width CV 12.1 % (11.6-14.6); RBC Distribution Width SD 38.6 fl (35.1-43.9); Red Blood Count 4.51 M/mm3 (4.2-5.4); White Blood Count 9.4 K/mm3 (4.4-11.0)
[2021-12-19 13:06] LABS: HIV - WCH Non-Reactive (Nonreactive); Hepatitis B Surface Antigen Non-Reactive (Nonreactive); Hepatitis C Antibody Non-Reactive (Nonreactive); Rubella IgG Reactive (Nonreactive); Syphilis Antibodies Non-reactive
[2021-12-21 09:12] LABS: V-Zoster IgG (Immunity) 669 index (Immune >165)
[2021-12-22 00:07] LABS: Chlamydia By Nucleic Acid AMP Negative (Negative)
[2021-12-22 14:25] LABS: Gonococcus By Nucleic Acid AMP Negative (Negative)
[2021-12-28 12:58] LABS: HPV APTIMA, High Risk Negative (Negative)
== END | disposition home or self-care (01) ==
LOC: WOBLAB 11:05
PROVIDERS: Visit Provider Obstetrics & Gynecology
DX: Z34.81 Encounter for supervision of other normal pregnancy, first trimester (principal); Z11.3 Encounter for screening for infections with a predominantly sexual mode of transmission; Z12.4 Encounter for screening for malignant neoplasm of cervix
CPT/HCPCS: 36415; 85025; 86703; 86762; 86780; 86787; 86803; 87086; 87088; 87340; 87491; 87591; 87624; 88175; G0145

== ENCOUNTER → 2022-04-01 | Outpatient (CLI) | payer SELFPAY ==
[2022-04-01 11:36] LABS: Glucose Challenge Gest 1H 50g 122 mg/dL (70-140)
[2022-04-01 12:00] LABS: Absolute Lymphocyte Count 1.71 X10^3/uL (0.83-4.51); Absolute Neutrophil Count 5.4 X10^3/uL (2.0-7.7); Basophil# 0.02 X10^3/uL; Basophil% 0.3 % (0-1); Eosinophil# 0.05 X10^3/uL; Eosinophils% 0.7 % (0-5); Hemoglobin 11.7 g/dL (12.0-15.0); Lymphocyte # 1.71 X10^3/ul (0.83-4.51); Lymphocyte % 22.8 % (19-41); Mean Corp Hgb Conc 33.4 g/dL (32-36); Mean Corpuscular Hgb 29.9 pg (27.0-32.0); Mean Corpuscular Volume 89.5 fL (81-99); Mean Platelet Vol. 9.9 fl (6.2-12.0); Monocyte# 0.35 X10^3/uL; Monocyte% 4.7 % (0-10); NRBC Flagged by Analyzer 0 % (0-5); Neutrophil # 5.37 X10^3/uL (2.7-7.7); Neutrophil % 71.4 % (47-70); Platelet Count 252 K/mm3 (150-450); RBC Distribution Width SD 42.1 fl (35.1-43.9); Red Blood Count 3.91 M/mm3 (4.2-5.4); White Blood Count 7.5 K/mm3 (4.4-11.0)
== END | disposition home or self-care (01) ==
LOC: WOBLAB 10:24
PROVIDERS: Visit Provider Obstetrics & Gynecology
DX: Z34.82 Encounter for supervision of other normal pregnancy, second trimester (principal)
CPT/HCPCS: 36415; 82950; 85025

== ENCOUNTER → 2022-04-29 | Outpatient (CLI) | payer SELFPAY | END | disposition home or self-care (01) | LOC: WOBLAB 11:11 | PROVIDERS: Visit Provider Student in an Organized Health Care Education/Training Program | DX: Z34.83 Encounter for supervision of other normal pregnancy, third trimester (principal) | CPT/HCPCS: 36415; 86850 ==

== ENCOUNTER → 2022-04-29 | Outpatient (CLI) | payer SELFPAY ==
--- NOTE | 2022-04-29 09:15 | US_ITS ---
STUDY: SECOND AND THIRD TRIMESTER OBSTETRICAL ULTRASOUND REASON FOR EXAM: Female, 32 years old GROWTH LMP: 10/09/2021 TECHNIQUE: Transabdominal TECHNICAL QUALITY: Adequate. PRIOR ULTRASOUND: None. FINDINGS: There is a single intrauterine fetus. The fetus is in a cephalic presentation. There is demonstrated cardiac activity with a heart rate of 126 bpm. There is a normal amniotic fluid volume. The largest amniotic fluid pocket measures 4.4 cm. The amniotic fluid index (GREER) is 15 cm. The placenta is posterior in location and is not low lying. There are Grade 0 placental changes. The cervix measures 3.6 cm in length. The adnexal regions are not visualized. BIOMETRY: BPD: 6.61 cm: 26 weeks, 5 days HC: 25.65 cm: 27 weeks, 6 days AC: 23.49 cm: 27 weeks, 6 days FL: 5 cm: 26 weeks, 5 days CI: 72% FL/BPD: 75% FL/HC: FL/AC: 21% HC/AC: 1.09 age by current US: 27 weeks, 3 days. MERLE by current US: 07/26/2022. Estimated weight: 1062 grams, +/- 159 grams, 5 %. Age by LMP: 28 weeks, 6 days. MERLE by LMP: 07/16/2022. US/OB Limited With Biometrics IMPRESSION: Single live uterine gestation with a mean gestational age of 27 weeks and 3 days. The fetus is in the 5th percentile for body weight. Electronically Signed: Carlos Zeng MD at 10:04 EST ,
== END | disposition home or self-care (01) ==
PROVIDERS: Referring Provider Student in an Organized Health Care Education/Training Program; Visit Provider Student in an Organized Health Care Education/Training Program
DX: O26.92 Pregnancy related conditions, unspecified, second trimester (principal); Z3A.27 27 weeks gestation of pregnancy
CPT/HCPCS: 76816

== ENCOUNTER → 2022-06-26 | Outpatient (CLI) | payer SELFPAY ==
[2022-06-26 11:28] LABS: Absolute Lymphocyte Count 1.86 X10^3/uL (0.83-4.51); Absolute Neutrophil Count 6.6 X10^3/uL (2.0-7.7); Basophil# 0.02 X10^3/uL; Basophil% 0.2 % (0-1); Eosinophil# 0.15 X10^3/uL; Eosinophils% 1.6 % (0-5); Hematocrit 38.7 % (37-47); Hemoglobin 12.7 g/dL (12.0-15.0); Lymphocyte # 1.86 X10^3/ul (0.83-4.51); Mean Corp Hgb Conc 32.8 g/dL (32-36); Mean Corpuscular Hgb 29.8 pg (27.0-32.0); Mean Corpuscular Volume 90.8 fL (81-99); Mean Platelet Vol. 11.3 fl (6.2-12.0); Monocyte# 0.61 X10^3/uL; Monocyte% 6.6 % (0-10); NRBC Flagged by Analyzer 0 % (0-5); Neutrophil # 6.63 X10^3/uL (2.7-7.7); Neutrophil % 71.2 % (47-70); Platelet Count 187 K/mm3 (150-450); RBC Distribution Width CV 13.3 % (11.6-14.6); RBC Distribution Width SD 43.3 fl (35.1-43.9); Red Blood Count 4.26 M/mm3 (4.2-5.4); White Blood Count 9.3 K/mm3 (4.4-11.0)
[2022-06-26 11:59] LABS: Syphilis Antibodies Non-reactive
== END | disposition home or self-care (01) ==
PROVIDERS: Visit Provider Student in an Organized Health Care Education/Training Program
DX: Z34.83 Encounter for supervision of other normal pregnancy, third trimester (principal)
CPT/HCPCS: 36415; 85025; 86780; 87081

== ENCOUNTER 2022-07-25 15:40 | Inpatient (IN) | payer SELFPAY ==
[2022-07-25] VITALS (12 sets, daily range): BP systolic 105–121; BP diastolic 62–84; PULSE 83–96; RESP 16; TEMP 36.6–37.1; O2SAT 92–98; BMI 24.3
--- NOTE | 2022-07-25 15:59 | PCM.HP.BLA ---
History and Physical Date of Admission: 07/25/22 HPI: 32-year-old G2, P1 at 41/2 weeks, MERLE 07/16/2022 by LMP, admitted in labor. Patient reports that contractions started around noon today. Patient had spontaneous rupture of meconium fluid during admission. Denies vaginal bleeding. Reports movement. Denies headache or vision changes, chest pain or shortness of breath, nausea or vomiting, fevers or chills, diarrhea or constipation. complicated by: Resolved growth restriction. 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 Denies Medications: vitamin Allergies: 1.? NKDA Family history: No hx of blood clots, bleeding disorders Social history: Denies tobacco, alcohol, drug use Review of system: Negative otherwise stated above Physical exam: Blood pressure , pulse , temp , oxygen saturation _ on room air General: Breathing through contractions, no acute distress HEENT: Normal cephalic/atraumatic, PERRLA Cardiorespiratory: No increased effort Abdomen: Soft, nontender, gravid Extremities: No edema Neurologic: Cranial nerves II through XII grossly intact, no focal deficits Musculoskeletal: Moves all extremities equally Cervical exam: 3 cm/80 % effaced. SROM meconium heart rate: 135/mod ramon/+accel/no decel [place]: q2-3 min Assessment/Plan: 32-year-old G2, P1 at 41/2 weeks, MERLE 07/16/2022 by LMP, admitted in labor. complicated by: Resolved growth restriction. ?Admit for labor. ? 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 GBS negative on 06/26/2022 ? Desires epidural ? Plan for expectant management at this time.
[2022-07-25 16:00] LABS: Absolute Lymphocyte Count 2.74 X10^3/uL (0.83-4.51); Absolute Neutrophil Count 10.5 X10^3/uL (2.0-7.7); Basophil# 0.03 X10^3/uL; Basophil% 0.2 % (0-1); Eosinophil# 0.14 X10^3/uL; Hematocrit 39.6 % (37-47); Hemoglobin 13.8 g/dL (12.0-15.0); Lymphocyte # 2.74 X10^3/ul (0.83-4.51); Lymphocyte % 19.2 % (19-41); Mean Corp Hgb Conc 34.8 g/dL (32-36); Mean Corpuscular Hgb 30.3 pg (27.0-32.0); Mean Corpuscular Volume 86.8 fL (81-99); Mean Platelet Vol. 11.1 fl (6.2-12.0); Monocyte# 0.82 X10^3/uL; Monocyte% 5.8 % (0-10); NRBC Flagged by Analyzer 0 % (0-5); Neutrophil # 10.47 X10^3/uL (2.7-7.7); Neutrophil % 73.4 % (47-70); Platelet Count 190 K/mm3 (150-450); RBC Distribution Width CV 13.4 % (11.6-14.6); RBC Distribution Width SD 42.5 fl (35.1-43.9); Red Blood Count 4.56 M/mm3 (4.2-5.4); White Blood Count 14.3 K/mm3 (4.4-11.0)
[2022-07-25] MEDS: Lactated Ringers 1,000 ML 50 ML IV (16:00)
[2022-07-25] MEDS: LACTATED RINGERS 500 ML 999 ML IV (16:00)
[2022-07-25] MEDS: Oxytocin 15 Units/NS 250ml 15 UNITS/250 ML IV.SOLN 83 UNITS IV (16:45)
[2022-07-25 17:08] LABS: Syphilis Antibodies Non-reactive
[2022-07-25] MEDS: Oxytocin 10 UNITS/ML Vial IM (17:15)
[2022-07-25] MEDS: Lidocaine 1% (20 ml mdv) 20 ML Vial INFILT (17:16)
--- NOTE | 2022-07-25 17:43 | OP.PCM_ITS ---
Maternal Data Information Final MERLE: 07/16/22 Vaginal Delivery Operative Information Date of Procedure: 07/25/22 Pre-Operative Diagnosis: Blair intrauterine Post-Operative Diagnosis: [place] intrauterine Surgery / Procedure Performed: Spontaneous Vaginal Delivery Type of Anesthesia: None Estimated Blood Loss: 300cc Findings Description of Procedure: Spontaneous vaginal delivery of viable infant male. Nuchal cord x1, loose, reduced. Baby to mom. Cord clamped and cut. Spontaneous delivery of placenta. Second-degree laceration repaired in usual fashion after injection of lidocaine. Hemostatic. Patient did receive Methergine x1 IM postdelivery during the recovery period. Certified Public Accountant in room for meconium fluid.. Infant A Gender: Male (1 minute): 8 (5 minute): 9 Complication Complications: None
[2022-07-26] VITALS (11 sets, daily range): BP systolic 106–127; BP diastolic 65–77; PULSE 74–97; RESP 16–18; TEMP 36.5–36.8; O2SAT 96–99
[2022-07-26] MEDS: Acetaminophen 500 MG Tablet 1000 MG PO ×3 (01:25→16:14)
--- NOTE | 2022-07-26 09:55 | PN.OBGYN_ITS ---
Subjective Subjective Feeling well. Lochia minimal. Breast-feeding going well. Objective Data Objective Data Vital Signs: Vital Signs Temp Pulse Resp BP Pulse Ox O2 Del Method 98.0 F 93 16 110/75 97 Room Air 07/26/22 04:25 07/26/22 09:10 07/26/22 04:25 07/26/22 09:10 07/26/22 04:25 07/26/22 04:25 Oxygen Delivery Method Room Air Weight: 58.241 kg Body Mass Index (BMI) 24.3 Intake & Output: Intake and Output for Last 24 Hours 07/24/22 07/25/22 07/26/22 23:59 23:59 23:59 Intake Total 730.53 / 730.53 Output Total 300 / 300 Balance 430.53 / 430.53 Lab / Micro Data Attestation: I reviewed the patient's lab results. Result Diagrams: 07/25/22 15:50 Labs: Laboratory Results - last 24 hr 07/25/22 15:50: WBC 14.3 H, RBC 4.56, Hgb 13.8, Hct 39.6, MCV 86.8, MCH 30.3, MCHC 34.8, RDW Std Deviation 42.5, RDW Coeff of Jj 13.4, Plt Count 190, MPV 11.1, Immature Gran % (Auto) 0.400, Neut % (Auto) 73.4 H, Lymph % (Auto) 19.2, [place] % (Auto) 5.8, Eos % (Auto) 1.0, Baso % (Auto) 0.2, Absolute Neuts (auto) 10.5 H, Absolute Lymphs (auto) 2.74, Nucleated RBC % 0 07/25/22 15:50: Blood Type A NEGATIVE, Antibody Screen NEGATIVE 07/25/22 15:50: Syphilis Total Ab Non-reactive Physical Exam Const alert, oriented x3 and no apparent distress HEENT normocephalic Head and Scalp: atraumatic Neck full ROM Resp normal respiratory effort Cardio regular rate GI normal to inspection, nondistended, normoactive bowel sounds GI Narrative: Uterus 2 cm below umbilicus Back/Spine normal ROM Extremity normal to inspection Extremity Narrative: Minimal pedal edema Neuro no focal motor deficits and no sensory deficits noted Psych mental status grossly normal and affect normal Assessment & Plan (1) (spontaneous vaginal delivery): PLAN: day 1 status post . Patient doing well. Breast-feeding. Home today.
--- NOTE | 2022-07-26 09:56 | DCINST_ITS ---
Discharge Instructions Diet Discharge Diet: No restrictions Activity Discharge Activity: Return to Normal Activity and May Shower May resume sexual activity in: 4-6 weeks Weight Bearing Status: Weight bearing as tolerated Lifting Restrictions: No greater than 25 pounds Dressing / Incision Call your doctor if you observe: Fever of 101 or Higher, Change in Color, Inability to urinate, Using more than 1 pad per hour, Shortness of breath, Dizziness, Swelling in the ankles, Chest pain and Calf discomfort Follow Up Care Please Follow Up With: Kathia Lucas DO When: 6-week visit Test Results: Test results from this visit will be discussed in further detail at your follow- up appointment, if applicable. Discharge Plan Admission Admit Date/Time: 07/25/22 15:40 Primary Reason for Your Visit: Vaginal delivery Attending Provider: Kathia Lucas Primary Care Provider: Phani Jaramillo Discharge Orders/Prescriptions Prescriptions: No Action + DHA 28 mg iron- 975 mcg-200 mg Combo Pack 1 pkg PO DAILY Referrals / Follow Up: Phani Jaramillo MD [Primary Care Provider] - Disposition Disposition (needs filled in before D/C Order can be placed): Home, Self Care
== END 2022-07-26 17:30 | disposition home or self-care (01) | DRG 807 ==
LOC: WPOUT 15:46 → WP 15:46
PROVIDERS: Admitting Provider Student in an Organized Health Care Education/Training Program; PCP Family Medicine; Visit Provider Student in an Organized Health Care Education/Training Program
DX: O70.1 Second degree perineal laceration during delivery (principal); Z37.0 Single live birth; O48.0 Post-term pregnancy; O77.0 Labor and delivery complicated by meconium in amniotic fluid; O69.81X0 Labor and delivery complicated by cord around neck, without compression, not applicable or unspecified; Z3A.41 41 weeks gestation of pregnancy
CPT/HCPCS: 59025; 59050; 85025; 86780; 86850; 86900; 86901; 99221; J7120; G0378